=== PATIENT | female | born 2000 | race Caucasian/White ===

== ENCOUNTER 2023-06-08 14:23 | Emergency (ER) | payer OTHER ==
[~2023-06-08] VITALS: Ht 167.6 cm; Wt 52.7 kg
[2023-06-08 14:29] VITALS: BP 122/7; PULSE 125; RESP 16; TEMP 98.1
== END 2023-06-08 15:32 | disposition left against medical advice (07) ==
LOC: EMS 14:36
DX: M25.572 Pain in left ankle and joints of left foot (principal); R20.0 Anesthesia of skin; Z76.0 Encounter for issue of repeat prescription; Z53.21 Procedure and treatment not carried out due to patient leaving prior to being seen by health care provider
CPT/HCPCS: 99281; Z7502